=== PATIENT | male | born 1965 | race Caucasian/White ===

== ENCOUNTER 2019-12-24 15:37 | Emergency (ER) | payer BC, SELFPAY ==
[2019-12-24 16:18] VITALS: BP 168/91; PULSE 71; RESP 18; TEMP 37.4; O2SAT 96; BMI 34.3
--- NOTE | 2019-12-24 20:30 | ED_ITS ---
HPI - Extremity Problem General: Chief complaint: Extremity Problem,Nontraumatic Stated complaint: right arm swelling Time Seen by Provider: 12/24/19 20:13 Source: patient Mode of arrival: ambulatory Limitations: no limitations History of Present Illness: HPI Narrative: Patient comes in today for complaints of swelling and redness to the elbow on the right upper extremity. Patient states has had some pain for the last 2 to 3 days that has worsened today. Patient has tried prednisone and tramadol for relief of discomfort thinking it was a gout type flare but has had no significant improvement. Patient appears well. Patient appears in no acute distress. Review of Systems General: Reports: 10 or more systems reviewed and unremarkable except in HPI and below Skin/Breast: Reports: changes in skin color Physical Exam Const: COMMON NORMALS: no acute distress and patient oriented x3 GENERAL APPEARANCE: cooperative HENMT: COMMON NORMALS: normocephalic and Normal external nose present HEAD & SCALP: normal to inspection and normocephalic NOSE: Normal external nose present MOUTH: Normal oral and palatal mucosa present Eye: GENERAL EYE: appearance normal, both eyes and all related structures Neck/C-Spine: COMMON NORMALS: full ROM Chest: COMMONS NORMALS: normal inspection of the chest Resp: COMMON NORMALS: normal respiratory effort EFFORT & INSPECTION: Yes able to speak in complete sentences Cardio: COMMON NORMALS: regular rate and regular rhythm RATE: regular rate RHYTHM: regular rhythm GI: COMMON NORMALS: non-tender : COMMON NORMALS: Yes no CVA tenderness BLADDER/KIDNEY EXAM: Yes no CVA tenderness Back/Pelvis: COMMON NORMALS: no CVA tenderness and thoracic and lumbar spine normal to inspection Extremity: NARRATIVE EXTREMITY EXAM: Induration and redness noted to the right elbow. Decreased range of motion due to pain and swelling. Distal pulses are intact and no obvious swelling is noted distally to the elbow. No ballottement of the olecranon bursa is noted. Neuro: COMMON NORMALS: patient oriented x3 and moves all extremities Psych: COMMON NORMALS: mental status grossly normal and cooperative Skin: COMMON NORMALS: no rashes or lesions noted GENERAL SKIN EXAM: no rashes or lesions noted Course Vital Signs: Vital signs: Vital Signs Temperature 99.4 F 12/24/19 16:18 Pulse Rate 58 L 12/24/19 20:31 Respiratory Rate 14 12/24/19 20:31 Blood Pressure 151/97 12/24/19 20:31 Pulse Oximetry 99 12/24/19 20:31 MDM - Extremity (Nontraumatic) MDM Narrative: Medical decision making narrative: Patient comes in for persisting redness and inflammation to the right elbow. On exam we note some induration and redness of the posterior elbow area with no swelling of the bursa. Vital signs are normal except for some mild elevation in blood pressure with a systolic pressure of 150. Respirations are even lungs are clear to auscultation abdomen soft nontender. Differential diagnosis includes but not limited to cellulitis, olecranon bursitis, gout, arthritis. Patient refused labs at this time. I believe patient probably has some cellulitis we will go ahead and treat with a gram of Rocephin and a injection of Toradol in the ER. Patient will then be continued on Bactrim twice a day for the next 10 days. Patient will be given colchicine due to his history of gout although I do suspect something other than gout. We will continue with diclofenac and hydrocodone otherwise for pain. Patient reports understanding of care plan and need for follow-up. Discharge Plan Discharge Patient Disposition: Home, Self-Care Clinical Impression: Cellulitis Qualifiers: Site of cellulitis: extremity Site of cellulitis of extremity: upper extremity Laterality: right Qualified Code(s): L03.113 - Cellulitis of right upper limb Condition: Stable Prescriptions: New Bactrim DS 800-160 mg tablet 1 tab PO DAILY 10 Days Qty: 20 RF: 0 diclofenac sodium 75 mg tablet,delayed release (DR/EC) 75 mg PO Q12H Qty: 20 RF: 0 colchicine 0.6 mg tablet 0.6 mg PO DAILY Qty: 3 RF: 0 hydrocodone-acetaminophen 5-325 mg tablet 1 tab PO Q8H PRN (Reason: pain (scale score 7-10)) Qty: 7 RF: 0 Discharge Orders: Discharge Order (Routine); Ordered 12/24/19 Ordered By: Obi Carvalho Referrals: Jayne De Jesus DO [Primary Care Provider] - Discharge Diet: Usual diet Discharge Activity: Increase activity as tolerated Patient Instructions: Cellulitis (ED) Activity Restrictions/Additional Instructions: Activity as tolerated. Take antibiotics as directed for next 7 to 10 days. Use colchicine and diclofenac for pain and inflammation. Return to the ER for worsening symptoms such as increased swelling and high fever. Follow-up with primary care in 1 week. Coding Level of Care Code ED Social Sciences Department Chair for Chg Fwd Exam Comprehensive
[2019-12-24 20:31] VITALS: BP 151/97; PULSE 58; RESP 14; O2SAT 99
[2019-12-24] MEDS: ketorolac 30 mg/mL INJ IM (20:57)
[2019-12-24] MEDS: cefTRIAXone 1,000 mg SDV 1000 MG IM (20:58)
== END 2019-12-24 22:04 | disposition home or self-care (01) ==
PROVIDERS: Emergency Provider Nurse Practitioner Family; PCP Family Medicine
DX: L03.113 Cellulitis of right upper limb (principal)
CPT/HCPCS: 12345; 96372; 99281; 99283; J0696; J1885

== ENCOUNTER → 2020-04-20 11:43 | Outpatient (BNVA) | payer BC, SELFPAY | PROVIDERS: PCP Family Medicine; Visit Provider Nurse Practitioner Family | DX: Z11.59 Encounter for screening for other viral diseases (principal); J06.9 Acute upper respiratory infection, unspecified | CPT/HCPCS: 87635 ==

== ENCOUNTER → 2020-05-30 08:20 | Outpatient (BNVA) | payer BC, SELFPAY | PROVIDERS: PCP Family Medicine Adult Medicine; Referring Provider Family Medicine Adult Medicine; Visit Provider Anesthesiology Pain Medicine | DX: M54.9 Dorsalgia, unspecified (principal); Z90.89 Acquired absence of other organs; Z90.49 Acquired absence of other specified parts of digestive tract; Z98.890 Other specified postprocedural states; M51.16 Intervertebral disc disorders with radiculopathy, lumbar region; M47.816 Spondylosis without myelopathy or radiculopathy, lumbar region; Z79.899 Other long term (current) drug therapy | CPT/HCPCS: 99205 ==

== ENCOUNTER → 2020-06-26 08:47 | Outpatient (BNVA) | payer BC, SELFPAY | PROVIDERS: PCP Family Medicine Adult Medicine; Visit Provider Anesthesiology Pain Medicine | DX: M54.9 Dorsalgia, unspecified (principal); M51.16 Intervertebral disc disorders with radiculopathy, lumbar region; M47.816 Spondylosis without myelopathy or radiculopathy, lumbar region; Z98.890 Other specified postprocedural states | CPT/HCPCS: 99213; 99214 ==

== ENCOUNTER → 2020-07-10 09:20 | Outpatient (BNVA) | payer BC, SELFPAY | PROVIDERS: PCP Family Medicine Adult Medicine; Visit Provider Anesthesiology Pain Medicine | DX: M47.816 Spondylosis without myelopathy or radiculopathy, lumbar region (principal); M54.9 Dorsalgia, unspecified | CPT/HCPCS: 64493; 64494; 64495; J1040; J3490 ==

== ENCOUNTER → 2020-07-24 08:32 | Outpatient (BNVA) | payer BC, SELFPAY | PROVIDERS: PCP Family Medicine Adult Medicine; Visit Provider Anesthesiology Pain Medicine | DX: M51.16 Intervertebral disc disorders with radiculopathy, lumbar region (principal); M47.816 Spondylosis without myelopathy or radiculopathy, lumbar region; M54.9 Dorsalgia, unspecified; Z98.890 Other specified postprocedural states; Z79.891 Long term (current) use of opiate analgesic | CPT/HCPCS: 99215 ==

== ENCOUNTER → 2020-08-15 08:21 | Outpatient (BNVA) | payer BC, SELFPAY | PROVIDERS: PCP Family Medicine Adult Medicine; Visit Provider Anesthesiology Pain Medicine | DX: M47.816 Spondylosis without myelopathy or radiculopathy, lumbar region (principal); M54.9 Dorsalgia, unspecified; Z79.891 Long term (current) use of opiate analgesic | CPT/HCPCS: 64635; 64636 ==

== ENCOUNTER → 2020-10-06 08:11 | Outpatient (BNVA) | payer BC, SELFPAY | PROVIDERS: PCP Family Medicine Adult Medicine; Visit Provider Anesthesiology Pain Medicine | DX: M47.816 Spondylosis without myelopathy or radiculopathy, lumbar region (principal); M54.9 Dorsalgia, unspecified; Z79.891 Long term (current) use of opiate analgesic | CPT/HCPCS: 64635; 64636; J1030 ==

== ENCOUNTER → 2020-10-20 13:29 | Outpatient (BNVA) | payer BC, SELFPAY | PROVIDERS: PCP Family Medicine Adult Medicine; Visit Provider Anesthesiology Pain Medicine | DX: M54.9 Dorsalgia, unspecified (principal); M51.16 Intervertebral disc disorders with radiculopathy, lumbar region; M47.816 Spondylosis without myelopathy or radiculopathy, lumbar region; Z98.890 Other specified postprocedural states | CPT/HCPCS: 99213 ==

== ENCOUNTER → 2020-11-02 08:19 | Outpatient (BNVA) | payer BC, SELFPAY | PROVIDERS: PCP Family Medicine Adult Medicine; Visit Provider Anesthesiology Pain Medicine | DX: M48.062 Spinal stenosis, lumbar region with neurogenic claudication (principal); M51.16 Intervertebral disc disorders with radiculopathy, lumbar region; M47.816 Spondylosis without myelopathy or radiculopathy, lumbar region; M54.9 Dorsalgia, unspecified; Z98.890 Other specified postprocedural states; Z79.899 Other long term (current) drug therapy; Z79.891 Long term (current) use of opiate analgesic | CPT/HCPCS: 99214 ==

== ENCOUNTER → 2022-02-28 12:17 | Outpatient (BNVA) | payer OTHER, SELFPAY | PROVIDERS: PCP Family Medicine Adult Medicine; Visit Provider Emergency Medicine | DX: S89.92XA Unspecified injury of left lower leg, initial encounter (principal); X58.XXXA Exposure to other specified factors, initial encounter; M17.12 Unilateral primary osteoarthritis, left knee | CPT/HCPCS: 73562 ==

== ENCOUNTER 2022-04-23 10:44 | Outpatient (CLI) | payer OTHER, SELFPAY ==
--- NOTE | 2022-04-23 11:31 | XRR_ITS ---
PROCEDURE INFORMATION: Exam: XR Right Knee Exam date and time: 04/23/2022 11:43 AM Age: 57 years old Clinical indication: Injury or trauma; Fall; Blunt trauma; Right; Injury details: History--rt knee pain, PT fell 2 months ago; Additional info: Acute knee pain TECHNIQUE: Imaging protocol: Radiologic exam of the Right knee. Views: 3 views. Total images: 2 COMPARISON: CR XR ankle RT min 3V* [id number] 02/11/2019 10:31 PM FINDINGS: Bones/joints: Mild marginal osteophytes are noted. Irregularity and subchondral cyst noted to the lateral femoral condyle. Enthesophyte of the quadriceps tendon insertion site on the patella. Patellofemoral compartment osteophyte formation. No acute fracture nor subluxation. No osseous erosion nor periosteal reaction. Soft tissues: Normal. XR/XR knee RT 3V* [id number] IMPRESSION: No acute osseous pathology.
== END 2022-04-23 10:45 | disposition home or self-care (01) ==
LOC: RAD 11:15
PROVIDERS: PCP Family Medicine Adult Medicine; Visit Provider Family Medicine
DX: M25.561 Pain in right knee (principal)
CPT/HCPCS: 73562

== ENCOUNTER 2023-03-13 21:55 | Emergency (ER) | payer BC, SELFPAY ==
[2023-03-13 22:04] VITALS: BP 141/75; PULSE 77; RESP 18; TEMP 36.6; O2SAT 95
--- NOTE | 2023-03-13 22:10 | ECG_ITS ---
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 Measurements Intervals [place] Rate: 76 P: 44 [place]: 170 QRS: 5 QRSD: 89 T: 10 QT: 399 QTc: 449 Interpretive Statements SINUS RHYTHM No previous ECG available for comparison Electronically Signed On 03-13-2023 22:55:49 CDT by Joao Doe M.D. [email or web address]
--- NOTE | 2023-03-13 23:17 | XRR_ITS ---
PROCEDURE INFORMATION: Exam: XR Chest Exam date and time: 03/13/2023 11:22 PM Age: 58 years old Clinical indication: Angina and dyspnea and other: Rash; Chest wall pain; Patient HX: Rash fatigue, weakness, cp, SOB; Additional info: Shortness of breath TECHNIQUE: Imaging protocol: Radiologic exam of the chest. Views: 1 view. COMPARISON: No relevant prior studies available. FINDINGS: Lungs: Unremarkable. No consolidation. Pleural spaces: Unremarkable. No pleural effusion. No pneumothorax. Heart/Mediastinum: Unremarkable. No cardiomegaly. Bones/joints: Unremarkable. XR/XR chest 1V portable [id number] IMPRESSION: No acute findings.
[2023-03-13] MEDS: diphenhydrAMINE 50 mg Capsule PO (23:25)
--- NOTE | 2023-03-13 23:25 | ED_ITS ---
HPI - Allergic Reaction General: Chief complaint: Allergic Reaction Stated complaint: Allergic Reaction to Meds Time Seen by Provider: 03/13/23 23:12 History of Present Illness: HPI narrative: Patient complains of itching little short of breath being flushed and intermittent left chest pain and rash on and off for about the last 3 days. Patient states the only change that he can think of was that he was started on Celebrex about 3 weeks ago. Patient said all the symptoms come and go but when they come the are fairly severe especially the itching and the rash. Patient is allergic to Compazine and Flexeril but they do not give him this type of reacti on. Review of Systems General: Reports: 10 or more systems reviewed and unremarkable except in HPI and below PFSH ED PFSH: Medical History Arthritis of sacroiliac joint of both sides Bilateral knee pain Fall (on) (from) other stairs and steps, initial encounter Gout HTN (hypertension) Lumbar disc disease with radiculopathy Obesity (BMI 35.0-39.9 without comorbidity) Right knee DJD Viral URI with cough Family History Mother Diabetes Osteoarthritis Heart disease STENTS Father Hypertension Diverticular disease Social History Smoking and tobacco status: never smoked Second hand smoke exposure: Yes Alcohol intake: current Alcohol intake frequency: holidays/special occasions only Substance/Drug Use: never Lives independently: Yes Current occupational status: employed 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 [employer] Physical Exam Const: COMMON NORMALS: no acute distress, average body habitus, patient oriented x3, no limitations, healthy appearing, alert and well nourished HENMT: COMMON NORMALS: normocephalic, atraumatic, hearing grossly normal bilaterally, external ears normal, Normal external nose present and moist oral mucous membranes HEAD & SCALP: normocephalic and atraumatic NOSE: Normal external nose present EXTERNAL EAR: Yes external ears normal Neck/C-Spine: COMMON NORMALS: full ROM, no lymphadenopathy, supple, no meningeal signs, no JVD and Thyroid normal THYROID: Thyroid normal Resp: COMMON NORMALS: normal respiratory effort, No retractions, No use of accessory muscles and clear to auscultation bilaterally AUSCULTATION: clear to auscultation bilaterally Cardio: COMMON NORMALS: no JVD, regular rate, regular rhythm, S1 normal heart sound present, S2 normal heart sound present, No gallops present (Cardio), No cl icks present (Cardio), No murmurs present (Cardio) and No rub (Cardio) RATE: regular rate RHYTHM: regular rhythm HEART SOUNDS: S1 normal heart sound present and S2 normal heart sound present GI: COMMON NORMALS: Normal to inspection, nondistended, normoactive bowel sounds present, Soft to palpation, non-tender, No hepatosplenomegaly present and no masses PALPATION: Yes Soft to palpation and Yes No hepatosplenomegaly present : COMMON NORMALS: Yes no CVA tenderness BLADDER/KIDNEY EXAM: Yes no CVA tenderness Back/Pelvis: COMMON NORMALS: no CVA tenderness Neuro: COMMON NORMALS: patient oriented x3 SENSORIUM/ORIENTATION: Yes alert MENINGEAL SIGNS: Yes no meningeal signs Course Vital Signs: Vital signs: Vital Signs Temperature 97.8 F 03/13/23 22:04 Pulse Rate 62 03/14/23 00:30 Respiratory Rate 18 03/13/23 22:04 Blood Pressure 128/87 03/14/23 00:30 Pulse Oximetry 94 03/14/23 00:30 Oxygen Delivery Me thod Room Air 03/14/23 00:30 MDM - Allergic Reaction Medical Decision Making Patient was given 50 mg Benadryl here lab work was obtained including chest x- ray and EKG all of which were essentially benign. Patient stated he felt much better. Patient be discharged home to follow-up with his PCP on an as-needed basis. Differential Diagnosis Likely allergic reaction and adverse reaction to drug; Unlikely anaphylaxis, angioedema, contact dermatitis, viral enanthem or urticaria Medical Records I reviewed the patient's medical records. Lab Data I reviewed the patient's lab results. 03/13/23 23:30 03/13/23 23:30 Radiology Impressions Chest X-Ray 03/13/23 23:17 IMPRESSION: No acute findings. Laboratory Results WBC 7.34 10^3/uL (3.29-11.43) 03/13/23 23:30 RBC 4.86 10^6/uL (3.85-5.65) 03/13/23 23:30 Hgb 15.10 g/dL (11.27-16.99) 03/13/23 23: Hct 44.1 % (37-53) 03/13/23: MCV 90.7 fl (82-101) 03/13/23 23: MCH 31.1 pg (27-33) 03/13/23: MCHC 34.2 g/dL (30-55) 03/13/23: RDW 12.7 % (12.1-15.1) 03/13/23: Plt Count 185 10^3/cmm (157-399) 03/13/23: MPV 10.1 fL (7.4-10.4) 03/13/23: Neut % (Auto) 54.1 % 03/13/23: Lymph % (Auto) 31.5 % 03/13/23: [place] % (Auto) 9.7 % 03/13/23: Eos % (Auto) 4.0 % 03/13/23: Baso % (Auto) 0.4 % 03/13/23: Neut # (Auto) 3.98 10^3/uL (1.8-7.7) 03/13/23: Lymph # (Auto) 2.3 10^3/uL (0.8-4.8) 03/13/23: [place] # (Auto) 0.7 10^3/uL (0.2-0.9) 03/13/23: Eos # (Auto) 0.3 10^3/uL (0.0-0.8) 03/13/23: Baso # (Auto) 0.0 10^3/uL (0.0-0.1) 03/13/23: Nucleated RBC % (auto) 0 % 03/13/23: Nucleated RBCs # 0.0 /100WBC 03/13/23: Sodium 141 mmol/L (136-145) 03/13/23: Potassium 3.4 mmol/L (3.5-5.1) L 03/13/23: Chloride 103 mmol/L (98-107) 03/13/23:30 Carbon Dioxide 26 mmol/L (22-29) 03/13/23 23:30 Anion Gap 15.4 (5-19) 03/13/23 23:30 BUN 10 mg/dL (6-20) 03/13/23 23:30 Creatinine 1.0 mg/dL (0.7-1.2) 03/13/23 23:30 GFR Calculation 77.3 mL/min (90-130) L 03/13/23 23:30 Glucose 102 mg/dL (65-115) 03/13/23 23:30 Calculated Osmolality 291 mOsm/kg (285-295) 03/13/23 23:30 Calcium 9.3 mg/dL (8.5-10.5) 03/13/23 23:30 Total Bilirubin 0.5 mg/dL (0.15-1.2) 03/13/23 23:30 AST 31 U/L (0-40) 03/13/23 23:30 ALT 26 U/L (0-41) 03/13/23 23:30 Alkaline Phosphatase 122 U/L (40-130) 03/13/23 23:30 Troponin T Baseline 19 ng/L (0-15) H 03/13/23 23:30 NT-Pro-B Natriuret Pep 89 pg/mL (0-125) 03/13/23 23:30 Total Protein 6.5 g/dL (6.6-8.7) L 03/13/23 23:30 Albumin 4.3 g/dL (3.5-5.2) 03/13/23 23:30 Globulin 2.2 g/dL (1.3-4.6) 03/13/23 23:30 All radiology interpretation(s) finalized by discharge Discharge Plan Discharge Patient Disposition: Home Clinical Impression: Allergic reaction Qualifiers: Encounter type: initial encounter Qualified Code(s): T78.40XA - Allergy, unspecified, initial encounter Condition: Stable Prescriptions: No Action Complete Multivitamin-Mineral 18-400 mg-mcg tablet 1 tab PO DAILY celecoxib 200 mg capsule 200 mg PO BID PRN (Reason: pain) Qty: 60 3RF miscellaneous medical supply Misc 1 ea miscellaneous .prn Qty: 1 0RF Rx Instructions: knee immobilizer (DME) knee immoblizer See Rx Instructions .Route .MEDSUPPLY Qty: 1 0RF Rx Instructions: As directed amlodipine 10 mg tablet 10 mg PO DAILY 90 Days Qty: 90 1RF lisinopril 40 mg tablet 40 mg PO DAILY Qty: 90 1RF hydrocodone-acetaminophen 5-325 mg tablet 1 tab PO BID 30 Days Qty: 60 0RF Rx Instructions: refill On or after 30 day interval Discharge Orders: Discharge ED (Routine); Ordered 03/14/23 Ordered By: Johny Nicole Referrals: Michael Browning MD [Primary Care Provider] - 1 week Patient Instructions: Allergic Reaction Activity Restrictions/Additional Instructions: Please continue take Benadryl as needed for your symptoms. Please follow-up with your family practice physician within the next 7 days or sooner as needed for further evaluation and treatment. Coding Level of Care Code ED Commercial Litigation Paralegal for Alberto Hahn
[2023-03-13 23:27] VITALS: BP 140/88; PULSE 67; O2SAT 95
[2023-03-13 23:30] VITALS: BP 140/77; PULSE 70; O2SAT 94
[2023-03-13 23:42] LABS: Basophils % 0.4 %; Eosinophils # 0.3 10^3/uL (0.0-0.8); Hematocrit 44.1 % (37-53); Lymphocytes # 2.3 10^3/uL (0.8-4.8); Lymphocytes % 31.5 %; Mean Corpuscular HGB Conc 34.2 g/dL (30-55); Mean Corpuscular Hemoglobin 31.1 pg (27-33); Mean Corpuscular Volume 90.7 fl (82-101); Mean Platelet Volume 10.1 fL (7.4-10.4); Monocytes # 0.7 10^3/uL (0.2-0.9); Monocytes % 9.7 %; Neutrophils # 3.98 10^3/uL (1.8-7.7); Neutrophils % 54.1 %; Nucleated Red Blood Cells % 0 %; Platelet Count 185 10^3/cmm (157-399); Red Blood Count 4.86 10^6/uL (3.85-5.65); Red Cell Distribution Width 12.7 % (12.1-15.1); White Blood Count 7.34 10^3/uL (3.29-11.43)
[2023-03-13 23:56] LABS: Troponin(5th) Baseline 19 ng/L (0-15)
[2023-03-14] VITALS: BP 123/80; PULSE 60; O2SAT 97
[2023-03-14 00:09] LABS: Alanine Aminotransferase 26 U/L (0-41); Albumin Level 4.3 g/dL (3.5-5.2); Alkaline Phosphatase 122 U/L (40-130); Blood Urea Nitrogen 10 mg/dL (6-20); Calcium 9.3 mg/dL (8.5-10.5); Carbon Dioxide 26 mmol/L (22-29); Chloride 103 mmol/L (98-107); Globulin 2.2 g/dL (1.3-4.6); Glomerular Filtration Rate 77.3 mL/min (90-130); Glucose 102 mg/dL (65-115); NT Pro B Type Natriuretic Pept 89 pg/mL (0-125); Osmolality Calculated 291 mOsm/kg (285-295); Sodium 141 mmol/L (136-145); Total Bilirubin 0.5 mg/dL (0.15-1.2); Total Protein 6.5 g/dL (6.6-8.7)
[2023-03-14 00:11] LABS: Anion Gap 15.4 (5-19); Aspartate Amino Transferase 31 U/L (0-40); Potassium 3.4 mmol/L (3.5-5.1)
[2023-03-14 00:30] VITALS: BP 128/87; PULSE 62; O2SAT 94
[2023-03-14 01:38] VITALS: BP 153/87; PULSE 53; RESP 16; O2SAT 93
== END 2023-03-14 01:42 | disposition home or self-care (01) ==
PROVIDERS: Emergency Provider Emergency Medicine; PCP Family Medicine Adult Medicine
DX: T78.40XA Allergy, unspecified, initial encounter (principal); T39.395A Adverse effect of other nonsteroidal anti-inflammatory drugs [NSAID], initial encounter; I10 Essential (primary) hypertension; Z77.22 Contact with and (suspected) exposure to environmental tobacco smoke (acute) (chronic); X58.XXXA Exposure to other specified factors, initial encounter
CPT/HCPCS: 36415; 71045; 80053; 83880; 84484; 85025; 93005; 99285; Q0163

== ENCOUNTER → 2024-03-23 14:40 | Outpatient (BNVA) | payer BC, SELFPAY | PROVIDERS: PCP Family Medicine Adult Medicine; Visit Provider Registered Nurse Neonatal Intensive Care | DX: M77.32 Calcaneal spur, left foot (principal); M19.072 Primary osteoarthritis, left ankle and foot; M79.672 Pain in left foot | CPT/HCPCS: 73610; 73630 ==

== ENCOUNTER 2025-04-26 10:26 | Day surgery (SDC) | payer BC, SELFPAY ==
--- NOTE | 2025-04-26 10:57 | ANES.PREANE2 ---
Pre-Anesthetic Assessment Height/Weight: Height 1.63 m Weight 83.915 kg Preop Diagnosis: screening Operation Date: 04/26/25 12:00 Proposed Procedures p Colonoscopy 70833 G0105 Z12.11(Not Applicable) - Jamin Nice MD Was Beta Gregg taken within 24 hours: N/A Was Clonidine taken within 24 hours: N/A Last Intake: 23:00 Social No alcohol and No tobacco Exam alert and oriented x 3 Airway Submandibular: within normal limits Cervical ROM: within normal limits Mallampati: Class I Dentition: false History/ROS No significant history except as noted Pulmonary None reported CV/HEM Hypertension None reported Hepatic None reported GI None reported Metabolic None reported Musc/skel Lower Back Pain and Osteoarthritis/DJD Neuropsych None reported Anesthetic Plan ASA status: 3 Anesthesia: MAC Risk of > 500 ml blood loss (7ml/kg in children): No Medications/Allergies Home Medications ?Medication ?Instructions ?Recorded ?Confirmed ?Last Taken ?Type multivitamin-ferrous 1 tab PO DAILY 11/02/20 04/20/25 04/20/25 History fumarate-folic acid 18 mg-400 mcg tablet (Complete Multivitamin-Multimineral) lisinopril 40 mg tablet 40 mg PO DAILY high BP #90 tabs 12/21/24 04/20/25 04/20/25 Rx amlodipine 10 mg tablet 10 mg PO DAILY blood pressure 90 03/15/25 04/20/25 04/20/25 Rx days #90 tabs celecoxib 200 mg capsule 200 mg PO BID PRN pain #60 caps 03/15/25 04/20/25 04/20/25 Rx methocarbamol 500 mg tablet See Rx Instructions .Route 04/15/25 04/20/25 04/20/25 Rx .COMPLEX #90 tabs oxycodone-acetaminophen 5 mg-325 1 tab PO TID PRN pain 30 days #90 04/15/25 04/20/25 04/20/25 Rx mg tablet tabs Allergies Allergy/AdvReac Type Severity Reaction Status Date / Time cyclobenzaprine Allergy Severe ADR-Depress Verified 03/28/25 11:23 ion prochlorperazine (From Allergy Severe ALGY-Anaphy Verified 03/28/25 11:23 Compazine) laxis [facility] Anesthesia Medical History Neck pain 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 Alvarez for injections Nicotine dependence, cigarettes, in remission quit 1989 Encounter for chronic pain management oxycodone for chronic back pain/spinal stenosis Pain management contract signed signed 06.29.24 Lumbar stenosis with neurogenic claudication MRI 04/16/23 L3-L4 & L4-L5 disc bulges central spinal stenosis, Foraminal stenosis L5-S1; has been to Dr. Rodriguez neurosurgeon at [facility]--note from 07/17 and offered fusion--patient opts against at this time; has had injections; PT; on oxycodone; [place] 12.06.24 [place] [facility] [facility] [place] Arthritis of sacroiliac joint of both sides Right knee DJD Obesity (BMI 35.0-39.9 without comorbidity) Gout HTN (hypertension) Surgical History Hx of colonoscopy 12..18 [place]--scanned to chart--path report shows adenoma so needs 5 yrs Hx of knee surgery doesn't know which one History of bilateral inguinal hernia repair Hx of appendectomy Hx of tonsillectomy Family History Mother Diabetes Osteoarthritis Heart disease STENTS Father Hypertension Diverticular disease Prostate cancer Social History Smoking and tobacco/nicotine status: former use of tobacco/nicotine Second hand smoke exposure: Yes Alcohol intake: current Alcohol intake frequency: holidays/special occasions only Substance/Drug Use: never Lives independently: Yes Household members: none Marital status: Number of children: 1 Highest education level completed: Some College, No Degree Current occupational status: employed 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
[2025-04-26 11:00] VITALS: BP 149/98; PULSE 70; RESP 18; TEMP 36.6; O2SAT 97
--- NOTE | 2025-04-26 11:12 | W.PM.OPSUD ---
Surgery/Procedure H&P Update DATE OF PROCEDURE: April 26, 2025 DATE H&P PERFORMED: 03/28/25 H&P UPDATE INFORMATION: I have reviewed H&P completed within last 30 days, I have examined patient prior to procedure, No changes to prior documentation and Risks and benefits of the procedure reviewed PREOP DIAGNOSIS: screening PLANNED PROCEDURE: Operation Date: 04/26/25 12:00 Proposed Procedures p Colonoscopy 39906 G0105 Z12.11(Not Applicable) - Jamin Nice MD
[2025-04-26 12:10] VITALS: BP 136/74; PULSE 64; RESP 18; O2SAT 99
--- NOTE | 2025-04-26 12:10 | ANE.PACU2 ---
Inpatient post-anesthesia follow up: Airway intact: Yes Vital signs: Temperature 97.8 F Pulse Rate 64 Respiratory Rate 18 Blood Pressure 136/74 Pulse Oximetry 99 Oxygen Delivery Me thod Room Air Oxygen Flow Rate Fraction of Inspir ed Oxygen Hydration adequate: Yes Nausea and vomiting: No Pain level: 1 Mental status: Baseline
== END 2025-04-26 12:10 | disposition home or self-care (01) ==
PROVIDERS: PCP Family Medicine; Visit Provider Student in an Organized Health Care Education/Training Program
PROC: 0DJD8ZZ Inspection of Lower Intestinal Tract, Via Natural or Artificial Opening Endoscopic (ICD-10-PCS; CPT 45378; principal; 2025-04-26 12:00)
DX: Z12.11 Encounter for screening for malignant neoplasm of colon (principal); K57.30 Diverticulosis of large intestine without perforation or abscess without bleeding; K64.1 Second degree hemorrhoids; Z79.891 Long term (current) use of opiate analgesic; I10 Essential (primary) hypertension; E66.9 Obesity, unspecified; Z68.31 Body mass index [BMI] 31.0-31.9, adult; Z87.891 Personal history of nicotine dependence; Z86.0100 Personal history of colon polyps, unspecified
CPT/HCPCS: 45378; J2704; J7030

== ENCOUNTER → 2025-06-13 12:14 | Outpatient (BNVA) | payer BC, SELFPAY | PROVIDERS: PCP Family Medicine; Visit Provider Family Medicine | DX: Z00.00 Encounter for general adult medical examination without abnormal findings (principal); Z12.5 Encounter for screening for malignant neoplasm of prostate | CPT/HCPCS: 80053; 84443; 85025; G0103 ==